=== PATIENT | male | born 1985 | race Caucasian/White ===

== ENCOUNTER 2022-06-04 12:44 | Emergency (ER) | payer OTHER ==
[~2022-06-04] VITALS: Ht 177.8 cm; Wt 106.6 kg
[2022-06-04 12:55] VITALS: BP 140/95
--- NOTE | 2022-06-04 12:55 | NUR ---
BIBS C/O BACK PAIN SINCE WEDNESDAY, STATES IT HURT MORE WHEN HE MOVES. DENIES ANY TRAUMA OR INJURY. PAIN 7/10 ON PAIN SCALE. AWAITING MD MUHAMMAD.
--- NOTE | 2022-06-04 12:58 | NUR ---
DR BARRIOS AT BEDSIDE
[2022-06-04] MEDS ORDERED: KETOROLAC TROMETHAMINE INJ 30 MG/ML VIAL ONE (13:00)
[2022-06-04] MEDS ORDERED: KETOROLAC TROMETHAMINE INJ 60 MG/2 ML VIAL IM ONE (13:00)
[2022-06-04] MEDS ORDERED: NAPR-1164 PO (13:06)
[2022-06-04] MEDS ORDERED: CYCL10TA9 PO (13:06)
[2022-06-04] MEDS ORDERED: HYDR-3972 PO (13:16)
== END 2022-06-04 13:27 | disposition home or self-care (01) ==
LOC: ER 12:56
DX: M54.50 Low back pain, unspecified (principal); G89.29 Other chronic pain
CPT/HCPCS: 99283; 96372; J1885